=== PATIENT | female | born 1935 | race Caucasian/White ===

== ENCOUNTER 2022-06-17 09:52 | Inpatient (IN) | payer MEDICARE, BC ==
[2022-06-16 14:29] LABS: BASOPHILS % 0.5 % (0.0-1.0); EOSINOPHILS % 0.5 % (0.0-6.0); HEMATOCRIT 36.5 % (34.2-44.1); HEMOGLOBIN 12.1 g/dL (12.0-16.0); LYMPHOCYTES # (AUTO) 1.7 (1.0-3.2); LYMPHOCYTES % 31.3 % (18.0-39.1); MEAN CORPUSCULAR HEMOGLOBIN 31.3 pg (28-32); MEAN CORPUSCULAR HGB CONC 33.2 g/dL (31-35); MEAN CORPUSCULAR VOLUME 94.6 fL (81-99); MONOCYTES # (AUTO) 0.6 (0.2-0.8); MONOCYTES % 9.9 % (4.4-11.3); NEUTROPHILS # (AUTO) 3.2 (2.1-6.9); NEUTROPHILS % 57.8 % (38.7-80.0); PLATELET COUNT 191 x10e3/uL (140-360); RED BLOOD COUNT 3.86 x10e6/uL (3.6-5.1); RED CELL DISTRIBUTION WIDTH 14.1 % (11.7-14.4)
[2022-06-16 14:44] LABS: ANION GAP 16.4 mmol/L (8-16); BLOOD UREA NITROGEN 15 mg/dL (7-26); BUN/CREATININE RATIO 16 (6-25); CALCIUM 9.5 mg/dL (8.4-10.2); CARBON DIOXIDE 24 mmol/L (22-29); CHLORIDE 100 mmol/L (98-107); CREATININE, SERUM 0.95 mg/dL (0.57-1.11); GLUCOSE 102 mg/dL (74-118); POTASSIUM 4.4 mmol/L (3.5-5.1); SODIUM 136 mmol/L (136-145)
[2022-06-17] VITALS (7 sets, daily range): BP systolic 105–113; BP diastolic 43–48
[~2022-06-17] VITALS: Ht 157.5 cm; Wt 65.8 kg
[~2022-06-17 09:52] MED LIST: ACETAMIN-CODE12.5 ML; ACETAMINOPHEN-1 EAC3 PO; ALDACTONE25 MG PO; AMLODIPINE BESYL5 MG PO; ASPIRIN81 MG PO; CRANBERRY200 MG PO; CRESTOR5 MG PO; HYDROCHLOROTHIA25 MG PO; IOPAMIDOL 610MG/1ML 300 MG/ML VIAL IV ONE; LYRICA75 MG PO; PROBIOTIC250 MG PO; PROTONIX20 MG PO; RENAVITE PO; VITAMIN D350 MCG PO; ZINC PO
[2022-06-17] MEDS ORDERED: GENTAMICIN 80MG/NS 100 ML 200 ML IV ONE (10:19)
[2022-06-17] MEDS ORDERED: PIPERACILLIN/TAZOBACTAM 3.375 GM VIAL ONE (10:20)
[2022-06-17] MEDS ORDERED: PHENAZOPYRIDINE HCL 100 MG TAB PO PRN (12:00)
[2022-06-17] MEDS ORDERED: NALOXONE HCL INJ 0.4 MG/ML AMP IV PRN (12:00)
[2022-06-17] MEDS ORDERED: ONDANSETRON HCL INJ 2MG/ML 2ML 2 MG/ML VIAL IV PRN ×2 (12:00→18:15)
[2022-06-17] MEDS ORDERED: MORPHINE SULFATE 1 MG/ML 30ML PCA IV PRN (12:00)
[2022-06-17] MEDS ORDERED: DIPHENHYDRAMINE HCL 25 MG CAP PO PRN (12:00)
[2022-06-17] MEDS ORDERED: ACETAMINOPHEN/CODEINE 300MG - 30MG TAB PO PRN (12:00)
[2022-06-17] MEDS ORDERED: GENTAMICIN SULFATE 40 MG/ML 2 ML VIAL ONE (12:15)
[2022-06-17] MEDS ORDERED: BACITRACIN ZINC 15 GM OINT ONE (12:16)
[2022-06-17] MEDS ORDERED: BUPIVACAINE 0.5%/EPI 30 ML SDV INJ ONE ×2 (12:16→12:41)
[2022-06-17] MEDS ORDERED: LIDOCAINE HCL 1% 30ML-PF VIAL ONE (12:16)
[2022-06-17] MEDS ORDERED: FENTANYL CITRATE/PF 100MCG/2 ML INJ ONE ×2 (14:37→17:54)
[2022-06-17] MEDS: SODIUM CHLORIDE 0.9% 1000ML 1,000 ML IV SCH (16:26)
[2022-06-17] MEDS: DOCUSATE SODIUM 100 MG CAP PO SCH (16:31)
[2022-06-17 16:55] LABS: BASOPHILS % 0.1 % (0.0-1.0); HEMATOCRIT 35.1 % (34.2-44.1); HEMOGLOBIN 11.4 g/dL (12.0-16.0); LYMPHOCYTES # (AUTO) 0.6 (1.0-3.2); LYMPHOCYTES % 8.7 % (18.0-39.1); MEAN CORPUSCULAR HEMOGLOBIN 31.2 pg (28-32); MEAN CORPUSCULAR HGB CONC 32.5 g/dL (31-35); MEAN CORPUSCULAR VOLUME 96.2 fL (81-99); MONOCYTES # (AUTO) 0.1 (0.2-0.8); MONOCYTES % 2.1 % (4.4-11.3); NEUTROPHILS # (AUTO) 6.1 (2.1-6.9); NEUTROPHILS % 88.8 % (38.7-80.0); PLATELET COUNT 162 x10e3/uL (140-360); RED BLOOD COUNT 3.65 x10e6/uL (3.6-5.1); RED CELL DISTRIBUTION WIDTH 14.1 % (11.7-14.4)
[2022-06-17 17:13] LABS: ANION GAP 15.8 mmol/L (8-16); CALCIUM 9.3 mg/dL (8.4-10.2); CREATININE, SERUM 0.87 mg/dL (0.57-1.11); POTASSIUM 3.8 mmol/L (3.5-5.1)
[2022-06-17] MEDS ORDERED: MAGNESIUM SULFATE 2GM/50ML IV ONE (18:15)
[2022-06-17] MEDS ORDERED: HYDRALAZINE HCL 20 MG/ML VIAL IV PRN (18:15)
[2022-06-17] MEDS ORDERED: MAGNESIUM SULFATE 2GM/50ML 50 ML IV ONE (18:15)
[2022-06-18] VITALS (9 sets, daily range): BP systolic 103–128; BP diastolic 38–57
[2022-06-18 05:28] LABS: HEMOGLOBIN 10.7 g/dL (12.0-16.0); LYMPHOCYTES # (AUTO) 0.6 (1.0-3.2); LYMPHOCYTES % 7.6 % (18.0-39.1); MEAN CORPUSCULAR HEMOGLOBIN 31.5 pg (28-32); MEAN CORPUSCULAR HGB CONC 33.4 g/dL (31-35); MEAN CORPUSCULAR VOLUME 94.1 fL (81-99); MONOCYTES # (AUTO) 0.4 (0.2-0.8); MONOCYTES % 4.5 % (4.4-11.3); NEUTROPHILS # (AUTO) 7.1 (2.1-6.9); NEUTROPHILS % 87.7 % (38.7-80.0); PLATELET COUNT 162 x10e3/uL (140-360); RED CELL DISTRIBUTION WIDTH 13.6 % (11.7-14.4)
[2022-06-18 05:44] LABS: ANION GAP 12.9 mmol/L (8-16); CALCIUM 8.7 mg/dL (8.4-10.2); CREATININE, SERUM 0.87 mg/dL (0.57-1.11); POTASSIUM 4.9 mmol/L (3.5-5.1)
[2022-06-18] MEDS: DOCUSATE SODIUM 100 MG CAP PO SCH ×2 (09:25→16:13)
[2022-06-18] MEDS: SODIUM CHLORIDE 0.9% 1000ML 1,000 ML IV SCH (12:30)
[2022-06-18] MEDS ORDERED: LIDOCAINE HCL 2% LOCAL INJ 5 ML SDV VIAL INJ ONE (14:31)
[2022-06-18] MEDS ORDERED: PHENYLEPHRINE HCL 1% 10 MG/ML VIAL IV ONE (14:31)
[2022-06-18] MEDS ORDERED: DEXAMETHASONE SOD PHOS INJ 4 MG/ML SDV IV ONE (14:31)
[2022-06-18] MEDS ORDERED: POVIDONE IODINE 0.05% 0.05 % ML PO ONE (14:31)
[2022-06-18] MEDS ORDERED: PROPOFOL IV EMULSION 10 MG/ML 20 ML VIAL IV ONE (14:31)
[2022-06-18] MEDS ORDERED: ONDANSETRON HCL INJ 2MG/ML 2ML 2 MG/ML VIAL IV ONE (14:31)
[2022-06-18] MEDS ORDERED: EPHEDRINE SULFATE INJ 50 MG/ML VIAL IV ONE (14:31)
[2022-06-19] VITALS (8 sets, daily range): BP systolic 95–126; BP diastolic 44–53
[2022-06-19 05:07] LABS: BASOPHILS % 0.3 % (0.0-1.0); EOSINOPHILS % 0.3 % (0.0-6.0); HEMATOCRIT 27.4 % (34.2-44.1); HEMOGLOBIN 9.1 g/dL (12.0-16.0); LYMPHOCYTES # (AUTO) 1.8 (1.0-3.2); LYMPHOCYTES % 26.3 % (18.0-39.1); MEAN CORPUSCULAR HEMOGLOBIN 31.8 pg (28-32); MEAN CORPUSCULAR HGB CONC 33.2 g/dL (31-35); MEAN CORPUSCULAR VOLUME 95.8 fL (81-99); MONOCYTES # (AUTO) 0.5 (0.2-0.8); MONOCYTES % 7.8 % (4.4-11.3); NEUTROPHILS # (AUTO) 4.4 (2.1-6.9); PLATELET COUNT 142 x10e3/uL (140-360); RED BLOOD COUNT 2.86 x10e6/uL (3.6-5.1); RED CELL DISTRIBUTION WIDTH 14.1 % (11.7-14.4)
[2022-06-19 05:44] LABS: ANION GAP 11.1 mmol/L (8-16); CREATININE, SERUM 0.89 mg/dL (0.57-1.11); POTASSIUM 4.1 mmol/L (3.5-5.1)
[2022-06-19] MEDS: DOCUSATE SODIUM 100 MG CAP PO SCH ×2 (08:44→16:21)
[2022-06-19] MEDS ORDERED: Morphine 4mg INJECTION 4 MG/ML INJ IV PRN (09:15)
[2022-06-19] MEDS: PREGABALIN 75 MG CAP PO SCH ×2 (10:16→16:21)
[2022-06-19] MEDS: SENNA-S TABLET PO SCH ×2 (10:16→16:21)
[2022-06-19] MEDS ORDERED: ONDANSETRON HCL 4 MG ORAL DISINTEGRATING TAB PO PRN (11:45)
[2022-06-20] VITALS: BP 123/45
[2022-06-20 04:00] VITALS: BP 132/58
[2022-06-20] MEDS ORDERED: PANTOPRAZOLE SOD 40 MG TABEC PO SCH (07:30)
[2022-06-20 07:37] LABS: BASOPHILS % 0.7 % (0.0-1.0); EOSINOPHILS % 0.6 % (0.0-6.0); HEMATOCRIT 31.7 % (34.2-44.1); HEMOGLOBIN 10.4 g/dL (12.0-16.0); LYMPHOCYTES # (AUTO) 1.8 (1.0-3.2); LYMPHOCYTES % 34.1 % (18.0-39.1); MEAN CORPUSCULAR HEMOGLOBIN 31.5 pg (28-32); MEAN CORPUSCULAR HGB CONC 32.8 g/dL (31-35); MEAN CORPUSCULAR VOLUME 96.1 fL (81-99); MONOCYTES # (AUTO) 0.4 (0.2-0.8); NEUTROPHILS % 56.2 % (38.7-80.0); PLATELET COUNT 168 x10e3/uL (140-360); RED CELL DISTRIBUTION WIDTH 14.8 % (11.7-14.4)
[2022-06-20 07:47] VITALS: BP 133/59
[2022-06-20 07:53] LABS: ANION GAP 13.3 mmol/L (8-16); CALCIUM 8.5 mg/dL (8.4-10.2); CREATININE, SERUM 0.85 mg/dL (0.57-1.11); POTASSIUM 4.3 mmol/L (3.5-5.1)
[2022-06-20 08:30] VITALS: BP 133/59
[2022-06-20] MEDS ORDERED: AMLODIPINE BESYLATE 5 MG TAB PO SCH (09:00)
[2022-06-20] MEDS: SENNA-S TABLET PO SCH (09:34)
[2022-06-20] MEDS: DOCUSATE SODIUM 100 MG CAP PO SCH (09:34)
[2022-06-20] MEDS: PREGABALIN 75 MG CAP PO SCH (09:34)
[2022-06-20 13:35] VITALS: BP 136/60
== END 2022-06-20 15:57 | disposition home or self-care (01) | DRG 746 ==
LOC: OR 09:52 → PACU V 11:50 → MED/SURG 14:59 → MED/SURG2 06-19 09:22
PROVIDERS: ADMIT Internal Medicine; ATTEND Internal Medicine
PROC: 0WU Anatomical Regions, General, Supplement (ICD-10-PCS; 2022-06-17)
PROC: 0TJB8ZZ Inspection of Bladder, Via Natural or Artificial Opening Endoscopic (ICD-10-PCS; 2022-06-17)
PROC: 0TSD0ZZ Reposition Urethra, Open Approach (ICD-10-PCS; principal; 2022-06-17 12:08)
DX: N81.12 Cystocele, lateral (principal); N39.0 Urinary tract infection, site not specified; N39.46 Mixed incontinence; N89.5 Stricture and atresia of vagina; I10 Essential (primary) hypertension; E78.5 Hyperlipidemia, unspecified; M19.90 Unspecified osteoarthritis, unspecified site; K21.9 Gastro-esophageal reflux disease without esophagitis; Z20.822 Contact with and (suspected) exposure to COVID-19
CPT/HCPCS: 0223U; 36415; 71046; 74420; 80048; 83735; 85025; 93005; 94799; C1713; C1758; J1100; J1580; J2001; J2270; J2370; J2405; J2543; J3010; J3475; J7030

== ENCOUNTER 2022-06-21 18:21 | Inpatient (IN) | payer MEDICARE, BC ==
[~2022-06-21] VITALS: Ht 157.5 cm; Wt 65.8 kg
[~2022-06-21 18:21] MED LIST changes: -IOPAMIDOL 610MG/1ML 300 MG/ML VIAL IV ONE
[2022-06-21] MEDS ORDERED: SODIUM CHLORIDE 0.9% 1000ML 1,000 ML IV SCH (19:00)
[2022-06-21] MEDS ORDERED: ACETAMINOPHEN 1000 MG/100 ML IV STA (19:03)
[2022-06-21] MEDS: PIPERACILLIN/TAZOBACTAM 4.5 GM in SODIUM CHLORIDE 0.9% 100 ML IV SCH ×2 (19:10→20:42)
[2022-06-21 19:11] LABS: BASOPHILS % 0.2 % (0.0-1.0); EOSINOPHILS % 0.2 % (0.0-6.0); HEMATOCRIT 35.6 % (34.2-44.1); HEMOGLOBIN 11.8 g/dL (12.0-16.0); LYMPHOCYTES # (AUTO) 0.5 (1.0-3.2); LYMPHOCYTES % 4.9 % (18.0-39.1); MEAN CORPUSCULAR HEMOGLOBIN 31.5 pg (28-32); MEAN CORPUSCULAR HGB CONC 33.1 g/dL (31-35); MEAN CORPUSCULAR VOLUME 94.9 fL (81-99); MONOCYTES # (AUTO) 0.3 (0.2-0.8); MONOCYTES % 3.3 % (4.4-11.3); NEUTROPHILS # (AUTO) 8.4 (2.1-6.9); NEUTROPHILS % 91.2 % (38.7-80.0); PLATELET COUNT 213 x10e3/uL (140-360); RED BLOOD COUNT 3.75 x10e6/uL (3.6-5.1); RED CELL DISTRIBUTION WIDTH 14.4 % (11.7-14.4)
[2022-06-21 19:58] LABS: ALBUMIN 1.3 g/dL (3.5-5.0); ALBUMIN/GLOBULIN RATIO 1.1 (0.8-2.0); ALKALINE PHOSPHATASE 30 IU/L (40-150); ANION GAP 6.5 mmol/L (8-16); BLOOD UREA NITROGEN 7 mg/dL (7-26); BUN/CREATININE RATIO 16 (6-25); CARBON DIOXIDE 12 mmol/L (22-29); CHLORIDE 124 mmol/L (98-107); CREATININE, SERUM 0.44 mg/dL (0.57-1.11); SODIUM 141 mmol/L (136-145)
[2022-06-21] MEDS ORDERED: LACTATED RINGER'S 1,000 ML INJ ONE (20:00)
[2022-06-21 20:06] LABS: GLUCOSE 57 mg/dL (74-118); POTASSIUM 1.5 mmol/L (3.5-5.1)
[2022-06-21 20:07] LABS: ALANINE AMINOTRANSFERASE < 6 IU/L (0-55); CALCIUM 3.7 mg/dL (8.4-10.2)
[2022-06-21 20:36] LABS: ANION GAP 18.6 mmol/L (8-16); CALCIUM 8.2 mg/dL (8.4-10.2); CREATININE, SERUM 0.98 mg/dL (0.57-1.11); POTASSIUM 3.6 mmol/L (3.5-5.1)
[2022-06-21] MEDS ORDERED: ONDANSETRON HCL INJ 2MG/ML 2ML 2 MG/ML VIAL IV PRN (22:00)
[2022-06-21] MEDS ORDERED: Morphine 4mg INJECTION 4 MG/ML INJ IV PRN (22:00)
[2022-06-21 22:32] LABS: CLARITY,URINE CLEAR (CLEAR); COLOR,URINE YELLOW (YELLOW)
[2022-06-21 22:33] LABS: KETONES,URINE NEGATIVE (NEGATIVE); LEUKOCYTE ESTERASE ,URINE NEGATIVE (NEGATIVE); NITRITE,URINE NEGATIVE (NEGATIVE); PROTEIN,URINE DIPSTICK NEGATIVE (NEGATIVE); URINE UROBILINOGEN 0.2 mg/dL (0.2 - 1)
[2022-06-21 22:51] LABS: BACTERIA,URINE FEW /HPF; EPITHELIAL CELLS,URINE FEW /LPF; WBC,URINE (MAN) 0-5 /HPF (0-5)
[2022-06-22] VITALS (8 sets, daily range): BP systolic 103–139; BP diastolic 46–81
[2022-06-22] MEDS: SODIUM CHLORIDE 0.9% 1000ML 1,000 ML IV SCH ×2 (04:25→05:57)
[2022-06-22 06:36] LABS: BASOPHILS % 0.2 % (0.0-1.0); EOSINOPHILS # (AUTO) 0.1 (0.0-0.4); EOSINOPHILS % 0.7 % (0.0-6.0); HEMATOCRIT 31.3 % (34.2-44.1); HEMOGLOBIN 10.5 g/dL (12.0-16.0); LYMPHOCYTES # (AUTO) 0.6 (1.0-3.2); LYMPHOCYTES % 6.9 % (18.0-39.1); MEAN CORPUSCULAR HEMOGLOBIN 31.4 pg (28-32); MEAN CORPUSCULAR HGB CONC 33.5 g/dL (31-35); MEAN CORPUSCULAR VOLUME 93.7 fL (81-99); MONOCYTES # (AUTO) 0.4 (0.2-0.8); MONOCYTES % 5.5 % (4.4-11.3); NEUTROPHILS % 86.5 % (38.7-80.0); PLATELET COUNT 166 x10e3/uL (140-360); RED BLOOD COUNT 3.34 x10e6/uL (3.6-5.1); RED CELL DISTRIBUTION WIDTH 14.4 % (11.7-14.4)
[2022-06-22 06:56] LABS: ANION GAP 12.9 mmol/L (8-16); CALCIUM 8.6 mg/dL (8.4-10.2); CREATININE, SERUM 1.03 mg/dL (0.57-1.11); POTASSIUM 3.9 mmol/L (3.5-5.1)
[2022-06-22] MEDS: PIPERACILLIN/TAZOBACTAM 4.5 GM in SODIUM CHLORIDE 0.9% 100 ML IV SCH ×2 (08:42→21:17)
[2022-06-22] MEDS: AMLODIPINE BESYLATE 5 MG TAB PO SCH (09:52)
[2022-06-22] MEDS: PREGABALIN 75 MG CAP PO SCH ×2 (09:52→16:49)
[2022-06-22] MEDS: PANTOPRAZOLE SOD 40 MG TABEC PO SCH (09:53)
[2022-06-22] MEDS ORDERED: IOPAMIDOL 370 MG/ML 100 ML INFUS..BTL INJ ONE (11:16)
[2022-06-22] MEDS ORDERED: ENOXAPARIN SOD INJ 40 MG/0.4 ML SYR SC SCH (17:00)
[2022-06-22] MEDS: TAMSULOSIN HCL 0.4 MG CAP PO SCH (18:00)
[2022-06-22] MEDS: SIMVASTATIN 20 MG TAB PO SCH (21:17)
[2022-06-23] VITALS (7 sets, daily range): BP systolic 107–133; BP diastolic 51–73
[2022-06-23 05:41] LABS: BASOPHILS % 0.5 % (0.0-1.0); EOSINOPHILS # (AUTO) 0.1 (0.0-0.4); HEMATOCRIT 27.9 % (34.2-44.1); HEMOGLOBIN 9.2 g/dL (12.0-16.0); LYMPHOCYTES # (AUTO) 0.9 (1.0-3.2); LYMPHOCYTES % 22.1 % (18.0-39.1); MEAN CORPUSCULAR HEMOGLOBIN 31.4 pg (28-32); MEAN CORPUSCULAR VOLUME 95.2 fL (81-99); MONOCYTES # (AUTO) 0.4 (0.2-0.8); MONOCYTES % 9.7 % (4.4-11.3); NEUTROPHILS # (AUTO) 2.6 (2.1-6.9); NEUTROPHILS % 64.5 % (38.7-80.0); PLATELET COUNT 168 x10e3/uL (140-360); RED BLOOD COUNT 2.93 x10e6/uL (3.6-5.1); RED CELL DISTRIBUTION WIDTH 14.3 % (11.7-14.4)
[2022-06-23 06:09] LABS: ANION GAP 14.4 mmol/L (8-16); CALCIUM 8.6 mg/dL (8.4-10.2); CREATININE, SERUM 0.92 mg/dL (0.57-1.11); POTASSIUM 3.4 mmol/L (3.5-5.1)
[2022-06-23] MEDS: POTASSIUM CHLORIDE 10MEQ EA PO SCH ×2 (10:02→15:25)
[2022-06-23] MEDS: FLUTICASONE PROPIONATE NASAL SPRAY NS SCH ×2 (10:02→11:56)
[2022-06-23] MEDS: PREGABALIN 75 MG CAP PO SCH ×2 (10:02→17:53)
[2022-06-23] MEDS: PIPERACILLIN/TAZOBACTAM 4.5 GM in SODIUM CHLORIDE 0.9% 100 ML IV SCH ×2 (10:02→20:24)
[2022-06-23] MEDS: LORATADINE 10 MG TAB PO SCH (10:02)
[2022-06-23] MEDS: PANTOPRAZOLE SOD 40 MG TABEC PO SCH (10:02)
[2022-06-23] MEDS: AMLODIPINE BESYLATE 5 MG TAB PO SCH (10:02)
[2022-06-23] MEDS ORDERED: ONDANSETRON HCL 4 MG ORAL DISINTEGRATING TAB PO PRN (14:00)
[2022-06-23] MEDS ORDERED: POTASSIUM CHLORIDE 10MEQ EA PO SCH (15:45)
[2022-06-23] MEDS: TAMSULOSIN HCL 0.4 MG CAP PO SCH (17:53)
[2022-06-23] MEDS: SIMVASTATIN 20 MG TAB PO SCH (20:24)
[2022-06-24 05:31] VITALS: BP 125/46
[2022-06-24 05:45] LABS: BASOPHILS % 0.5 % (0.0-1.0); EOSINOPHILS # (AUTO) 0.1 (0.0-0.4); HEMOGLOBIN 9.4 g/dL (12.0-16.0); LYMPHOCYTES # (AUTO) 1.2 (1.0-3.2); LYMPHOCYTES % 30.2 % (18.0-39.1); MEAN CORPUSCULAR HEMOGLOBIN 31.2 pg (28-32); MEAN CORPUSCULAR HGB CONC 34.8 g/dL (31-35); MEAN CORPUSCULAR VOLUME 89.7 fL (81-99); MONOCYTES # (AUTO) 0.5 (0.2-0.8); MONOCYTES % 11.6 % (4.4-11.3); NEUTROPHILS # (AUTO) 2.2 (2.1-6.9); NEUTROPHILS % 54.4 % (38.7-80.0); PLATELET COUNT 179 x10e3/uL (140-360); RED BLOOD COUNT 3.01 x10e6/uL (3.6-5.1); RED CELL DISTRIBUTION WIDTH 14.6 % (11.7-14.4)
[2022-06-24 06:07] LABS: ANION GAP 13.6 mmol/L (8-16); CALCIUM 8.7 mg/dL (8.4-10.2); CREATININE, SERUM 0.87 mg/dL (0.57-1.11); POTASSIUM 3.6 mmol/L (3.5-5.1)
[2022-06-24] MEDS: PANTOPRAZOLE SOD 40 MG TABEC PO SCH (07:51)
[2022-06-24] MEDS: PREGABALIN 75 MG CAP PO SCH (07:59)
[2022-06-24 08:29] VITALS: BP 120/55
[2022-06-24] MEDS: FLUTICASONE PROPIONATE NASAL SPRAY NS SCH (08:53)
[2022-06-24] MEDS: LORATADINE 10 MG TAB PO SCH (08:53)
[2022-06-24] MEDS: AMLODIPINE BESYLATE 5 MG TAB PO SCH (08:53)
== END 2022-06-24 10:15 | disposition home or self-care (01) | DRG 205 ==
LOC: ER 18:29 → ERHOLD 21:53 → MED/SURG 06-22 02:44
PROVIDERS: ADMIT Internal Medicine; ATTEND Internal Medicine
DX: J95.89 Other postprocedural complications and disorders of respiratory system, not elsewhere classified (principal); J18.9 Pneumonia, unspecified organism; R00.0 Tachycardia, unspecified; I10 Essential (primary) hypertension; E78.5 Hyperlipidemia, unspecified; K21.9 Gastro-esophageal reflux disease without esophagitis; R33.9 Retention of urine, unspecified; N39.41 Urge incontinence; N32.81 Overactive bladder; R09.81 Nasal congestion; Z96.0 Presence of urogenital implants; Z87.440 Personal history of urinary (tract) infections; Z90.710 Acquired absence of both cervix and uterus; Z90.722 Acquired absence of ovaries, bilateral; Z90.49 Acquired absence of other specified parts of digestive tract; Z88.7 Allergy status to serum and vaccine; Z86.711 Personal history of pulmonary embolism; Z20.822 Contact with and (suspected) exposure to COVID-19
CPT/HCPCS: 36415; 71045; 71260; 74177; 80048; 80053; 81001; 82948; 83605; 85025; 87040; 87086; 87400; 93005; 94799; 96361; 99284; J1650; J2543; J7030; J7050; J7121; Q9967